=== PATIENT | male | born 1945 | race Caucasian/White ===

== ENCOUNTER 2021-05-31 13:35 | Inpatient (IN) | payer OTHER, MEDICARE ==
[~2021-05-31] VITALS: Ht 170.2 cm; Wt 95.3 kg
[2021-05-31] MEDS ORDERED: IV NORMAL SALINE 1000 ML BAG IV ONE ×2 (13:45→14:30)
--- NOTE | 2021-05-31 13:50 | NUR ---
Pt is refusing saline lock and blood draw, at bedside speaking with pt.
[2021-05-31] MEDS ORDERED: PREDNISONE (13:56)
[2021-05-31 14:03] LABS: MEAN CORPUSCULAR HEMOGLOBIN 31.4 uug (23.8-33.4); PLATELET COUNT (AUTO) 315 K/uL (152-348)
[2021-05-31 14:10] LABS: CARBON DIOXIDE 23 mmol/L (21-32); CHLORIDE 108 mmol/L (98-107); CREATININE 1.7 mg/dL (0.6-1.3); GLUCOSE 174 mg/dL (74-106); POTASSIUM 4.4 mmol/L (3.5-5.1); UREA NITROGEN, BLOOD 68 mg/dL (7-18)
[2021-05-31 14:16] LABS: ALANINE AMINOTRANSFERASE 42 U/L (16-63); ALKALINE PHOSPHATASE 52 U/L (50-136); ASPARTATE AMINOTRANSFERASE 29 U/L (15-37); BILIRUBIN,TOTAL 0.4 mg/dL (0.2-1.0); TOTAL PROTEIN, SERUM 7.8 g/dL (6.4-8.2)
[2021-05-31] MEDS ORDERED: CEFTRIAXONE 1 G in IV DEXTROSE 5% 50 ML IV ONE (14:30)
[2021-05-31] MEDS ORDERED: CEFTRIAXONE /D5W 50ML IVPB **ER PYXIS IV ONE (14:49)
[2021-05-31] MEDS ORDERED: DEXAMETHASONE SOD PHOSPHATE 10 MG INJ ONE (14:57)
[2021-05-31] MEDS ORDERED: DEXAMETHASONE SOD PHOSPHATE 4 MG INJ IV ONE (15:00)
--- NOTE | 2021-05-31 15:25 | NUR ---
Pt to be admitted to [facility] floor, [facility] paged. Pt resting with no s/s of acute distress noted at this time.
[2021-05-31] MEDS ORDERED: ACETAMINOPHEN 325 MG TABLET PO PRN (15:45)
[2021-05-31] MEDS ORDERED: ONDANSETRON 4 MG/2 ML VIAL IV PRN (15:45)
[2021-05-31] MEDS ORDERED: MAGNESIUM HYDROXIDE 30 ML LIQUID UDC PO PRN (15:45)
[2021-05-31] MEDS ORDERED: Z GUARD REMEDY PASTE 57 GM TUBE TOP PRN (15:45)
[2021-05-31] MEDS ORDERED: DEXTROSE 50% 50 ML DISP.SYRIN IV PRN (16:00)
--- NOTE | 2021-05-31 16:14 | NUR ---
Pt resting with NAD noted. Pending trans to tele floor when bed available (eta [id number]).
[2021-05-31 16:18] LABS: *BILIRUBIN,URIN NEGATIVE (NEGATIVE); *BLOOD, URINE NEGATIVE (NEGATIVE); *CLARITY,URINE CLEAR (CLEAR); *COLOR,URINE YELLOW (YELLOW); *KETONES,URINE NEGATIVE (NEGATIVE); *UROBILINOGEN,URINE 0.2 E.U./dl (NORMAL); LEUKOCYTE ESTERASE ,URINE NEGATIVE (NEGATIVE); NITRITE, URINE NEGATIVE (NEGATIVE); UGLUCOSE NEGATIVE (NEGATIVE)
[2021-05-31 16:28] LABS: *AMPHETAMINE, URINE NEGATIVE (NEGATIVE); *CANNABINOID, URINE NEGATIVE (NEGATIVE); *COCCAINE, URINE NEGATIVE (NEGATIVE); *OPIATE, URINE NEGATIVE (NEGATIVE); *PHENCYCLIDINE SCREEN,URINE NEGATIVE (NEGATIVE)
[2021-05-31] MEDS: BLOOD SUGAR DIAGNOSTIC 1 EACH STRIP VI SCH ×2 (16:30→21:36)
--- NOTE | 2021-05-31 18:05 | NUR ---
Pt trans to tele floor room 324, NAD noted.
[2021-05-31 18:47] VITALS: BP 135/46
--- NOTE | 2021-05-31 19:30 | NUR ---
Received pt in no acute distress. Iv intact. Pt on room air.Pt forgetful and needs reorientation. Safety and comfort provided. Will continue to monitor.
[2021-05-31 20:00] VITALS: BP 137/60
[2021-05-31] MEDS: HEPARIN SODIUM,PORCINE 5,000 UNITS/ML VIAL SQ SCH (21:00)
[2021-05-31] MEDS: IV NS 1000 ML 1,000 ML IV PRN (21:36)
[2021-05-31] MEDS: INSULIN REGULAR, HUMAN 300 UNIT/3 ML VIAL SQ PRN (21:37)
--- NOTE | 2021-05-31 21:37 | NUR ---
Pt refused his Heparin medication and Insulin medication. Pt in no acute distress. Safety and comfort provided. Will continue to monitor.
[2021-06-01 04:30] VITALS: BP 139/71
[2021-06-01] MEDS: PANTOPRAZOLE SODIUM 40 MG TABLET.DR PO SCH (06:04)
--- NOTE | 2021-06-01 06:10 | NUR ---
Pt slept intermittently. Pt in no acute distress. Prescribed medication given and pt tolerated it well. Pt forgetful and sometimes verbally abusive. Pt needs reorientation. Pt wants to be left alone and had incident that he is telling staff that he will hit us. Safety and comfort provided. Pt stable. Will continue to monitor and endorse to incoming nurse.
[2021-06-01] MEDS: BLOOD SUGAR DIAGNOSTIC 1 EACH STRIP VI SCH ×4 (06:46→20:37)
[2021-06-01] MEDS: HEPARIN SODIUM,PORCINE 5,000 UNITS/ML VIAL SQ SCH (08:26)
[2021-06-01] MEDS: DEXAMETHASONE SOD PHOSPHATE 4 MG INJ IV SCH (08:27)
[2021-06-01] MEDS: INSULIN REGULAR, HUMAN 300 UNIT/3 ML VIAL SQ PRN ×4 (08:28→20:38)
--- NOTE | 2021-06-01 09:00 | NUR ---
SEEN BY DR MANSFIELD FOR PULMO FOLLOW-UP SEE NOTES. PATIENT REMAINS COMPLIANCE NO C/O PAIN NO SOB
[2021-06-01] MEDS: IV NS 1000 ML 1,000 ML IV PRN (09:44)
[2021-06-01] MEDS: AZITHROMYCIN IV 500 MG in IV DEXTROSE 5% 250 ML IV SCH (11:58)
--- NOTE | 2021-06-01 12:00 | NUR ---
NO ACUTE CHANGE FROM AM ASSESSMENT
[2021-06-01 12:01] VITALS: BP 134/75
[2021-06-01 15:34] LABS: HEMATOCRIT 21.6 % (36.7-47.1); MEAN CORPUSCULAR HEMOGLOBIN 31.4 uug (23.8-33.4); MEAN CORPUSCULAR VOLUME 94.7 fL (73.0-96.2); PLATELET COUNT (AUTO) 304 K/uL (152-348)
[2021-06-01] MEDS: CEFTRIAXONE 1 G in IV DEXTROSE 5% 50 ML IV SCH (15:46)
[2021-06-01 16:00] VITALS: BP 118/64
[2021-06-01 16:03] LABS: ALANINE AMINOTRANSFERASE 44 U/L (16-63); ALKALINE PHOSPHATASE 52 U/L (50-136); ASPARTATE AMINOTRANSFERASE 25 U/L (15-37); BILIRUBIN,TOTAL 0.3 mg/dL (0.2-1.0); CARBON DIOXIDE 24 mmol/L (21-32); CHLORIDE 106 mmol/L (98-107); CREATININE 1.5 mg/dL (0.6-1.3); FERRITIN 246 ng/mL (26-388); GLUCOSE 200 mg/dL (74-106); LACTATE DEHYDROGENASE 254 U/L (85-227); PHOSPHOROUS 2.7 mg/dL (2.5-4.9); POTASSIUM 4.8 mmol/L (3.5-5.1); TOTAL PROTEIN, SERUM 6.6 g/dL (6.4-8.2); UREA NITROGEN, BLOOD 46 mg/dL (7-18)
--- NOTE | 2021-06-01 18:15 | NUR ---
PATIENT REMAINS STABLE NO SOB SATURATING 98% RA, AFEBRILE
--- NOTE | 2021-06-01 19:20 | NUR ---
Received pt resting in bed. AO x 1 to name, confused to place and time. On room air saturating at 95%. IV intact and running NS 75 mls/hr. No acute distress noted. Denies any pain or discomfort at this time. Call lights within reach, safety measures initiated. Urinal placed by bedside.
[2021-06-01 20:40] VITALS: BP 150/79
[2021-06-02] VITALS (10 sets, daily range): BP systolic 110–145; BP diastolic 61–76
[2021-06-02] MEDS: IV NS 1000 ML 1,000 ML IV PRN (03:37)
--- NOTE | 2021-06-02 05:28 | NUR ---
AO x 1, to name, slept throughout the night. On room air saturating at 100%. IV intact running NS at 75mls/hr. Droplet isloation in place and maintained. No signs of acute distress. Call lights within reach, safety measures maintained. Will endorse to am shift.
[2021-06-02] MEDS: PANTOPRAZOLE SODIUM 40 MG TABLET.DR PO SCH (06:18)
[2021-06-02] MEDS: BLOOD SUGAR DIAGNOSTIC 1 EACH STRIP VI SCH ×4 (06:27→20:45)
--- NOTE | 2021-06-02 06:28 | NUR ---
AO x 1, to name, slept throughout the night. On room air saturating at 100%. IV intact running NS at 75mls/hr. Droplet isloation in place and maintained. Compliant with medication and care. No signs of acute distress. Needs have been met. Call light within reach, safety measures maintained. Will endorse to am shift.
[2021-06-02 07:19] LABS: MEAN CORPUSCULAR HEMOGLOBIN 31.5 uug (23.8-33.4); MEAN CORPUSCULAR VOLUME 95.2 fL (73.0-96.2); PLATELET COUNT (AUTO) 298 K/uL (152-348)
[2021-06-02 07:26] LABS: ABG BASE EXCESS -4.9 mmol/L; ABG HCO3 18.3 mmol/L; ABG PCO2 26.3 mmHg (35.0-45.0); ABG PO2 92.7 mmHg (75.0-100.0); ABG SITE LEFT BRACHIAL; ABG TOTAL HEMOGLOBIN 6.9 G/dL (13.5-18.0); COHb 0.3 % (0.5-1.5); MetHb 0.5 % (0.0-1.5); O2Hb 95.8 % (94.0-97.0); VENT MODE ROOM AIR
--- NOTE | 2021-06-02 07:35 | NUR ---
relayed abg results to dr. delgado no new orders received at this time.
[2021-06-02 07:46] LABS: HEMATOCRIT 19.6 % (36.7-47.1)
--- NOTE | 2021-06-02 07:50 | NUR ---
received critical hgb/hct 6.5/ 19.8 and relayed to Sina Bejarano NP who's on the floor.
--- NOTE | 2021-06-02 07:56 | NUR ---
alert and oriented x1. no acute distress. denies pain or sob. in bed, iv intact and running. remains on contact isolation. safety measures in place. will cont to monitor.
[2021-06-02 08:03] LABS: CARBON DIOXIDE 24 mmol/L (21-32); CHLORIDE 109 mmol/L (98-107); CREATININE 1.4 mg/dL (0.6-1.3); FERRITIN 212 ng/mL (26-388); GLUCOSE 103 mg/dL (74-106); LACTATE DEHYDROGENASE 284 U/L (85-227); PHOSPHOROUS 2.9 mg/dL (2.5-4.9); POTASSIUM 4.2 mmol/L (3.5-5.1); UREA NITROGEN, BLOOD 40 mg/dL (7-18)
[2021-06-02] MEDS: DEXAMETHASONE SOD PHOSPHATE 4 MG INJ IV SCH (09:06)
[2021-06-02] MEDS: AZITHROMYCIN IV 500 MG in IV DEXTROSE 5% 250 ML IV SCH (09:06)
--- NOTE | 2021-06-02 11:22 | NUR ---
verified bt consent with patient. provided brochure "guide to blood transfusion". seen and examined by marlene chavez.
[2021-06-02] MEDS: INSULIN REGULAR, HUMAN 300 UNIT/3 ML VIAL SQ PRN ×3 (12:05→20:47)
--- NOTE | 2021-06-02 12:16 | NUR ---
called blood bank asked if what time blood will be ready. per satinder, probably in the afternoon when lab person who releases blood is here.
[2021-06-02] MEDS ORDERED: IV LACTATED RINGERS SOLUTION 1,000 ML IV PRN (16:30)
[2021-06-02 18:18] LABS: BAND % (MANUAL) 3 % (0-10); EOSINOPHILS % (MANUAL) 1 % (0-8); LYMPHOCYTES % (MANUAL) 13 % (20-40); METAMYELOCYTES % 8 % (0-1); MONOCYTES % (MANUAL) 2 % (2-10); MYELOCYTES % 4 % (0-0); NEUTROPHILS % (MANUAL) 69 % (42-75)
--- NOTE | 2021-06-02 18:34 | NUR ---
blood transfusion still ongoing. not in distress. no allergic/adverse reactions noted. pt eating dinner noted with good appetite. needs attended. safety measures maintained. remains on contact isolation for covid. cont to monitor.
--- NOTE | 2021-06-02 18:38 | NUR ---
1500 IV Rocephin not yet given d/t pt still having blood transfusion. will endorse accordingly.
--- NOTE | 2021-06-02 19:35 | NUR ---
Patient received in semi fowlers position. In no acute distress. Finished blood transfusion at this time. No adverse reaction noted, tolerates procedure well. AAO to person and situation, able to make simple needs known. Denies any pain, on RA, no SOB noted or reported. IV to right FA is intact and patent. He is urinating well, in urinal. Safety measures initiated. Call light within reach.
[2021-06-02] MEDS: CEFTRIAXONE 1 G in IV DEXTROSE 5% 50 ML IV SCH (20:36)
[2021-06-03 04:31] VITALS: BP 136/80
--- NOTE | 2021-06-03 05:58 | NUR ---
Slept well, easily woken. Denies any pain or discomfort. On RA, denies any SOB or respiratory distress. Urinating well. All needs assessed, call light within reach.
[2021-06-03] MEDS: PANTOPRAZOLE SODIUM 40 MG TABLET.DR PO SCH (06:19)
[2021-06-03] MEDS: LEVOTHYROXINE SODIUM 25 MCG TABLET PO SCH (06:19)
[2021-06-03] MEDS: BLOOD SUGAR DIAGNOSTIC 1 EACH STRIP VI SCH ×4 (06:31→21:00)
[2021-06-03] MEDS ORDERED: MAGNESIUM CITRATE 296 ML BOTTLE PO ONE (10:00)
[2021-06-03] MEDS: AZITHROMYCIN IV 500 MG in IV DEXTROSE 5% 250 ML IV SCH (10:01)
[2021-06-03 11:39] LABS: MEAN CORPUSCULAR HEMOGLOBIN 30.4 uug (23.8-33.4); MEAN CORPUSCULAR VOLUME 91.8 fL (73.0-96.2); PLATELET COUNT (AUTO) 301 K/uL (152-348)
[2021-06-03] MEDS: INSULIN REGULAR, HUMAN 300 UNIT/3 ML VIAL SQ PRN ×2 (11:51→21:04)
[2021-06-03 12:00] VITALS: BP 110/45
[2021-06-03 12:10] LABS: ALANINE AMINOTRANSFERASE 43 U/L (16-63); ALKALINE PHOSPHATASE 55 U/L (50-136); ASPARTATE AMINOTRANSFERASE 33 U/L (15-37); BILIRUBIN,DIRECT < 0.1 mg/dL (0.0-0.2); BILIRUBIN,TOTAL 0.3 mg/dL (0.2-1.0); CARBON DIOXIDE 22 mmol/L (21-32); CHLORIDE 106 mmol/L (98-107); CREATININE 1.6 mg/dL (0.6-1.3); GLUCOSE 143 mg/dL (74-106); PHOSPHOROUS 3.1 mg/dL (2.5-4.9); TOTAL PROTEIN, SERUM 6.3 g/dL (6.4-8.2); UREA NITROGEN, BLOOD 31 mg/dL (7-18)
[2021-06-03 12:26] LABS: IRON, SERUM 37 ug/dL (50-175)
[2021-06-03] MEDS: CEFTRIAXONE 1 G in IV DEXTROSE 5% 50 ML IV SCH (14:55)
[2021-06-03 16:00] VITALS: BP 115/57
--- NOTE | 2021-06-03 16:10 | NUR ---
Pt is a/o x 2, saturating 100% on room air. No complaint of pain, SOB, or signs of acute distress. Comfort measures provided, IV intact and patent. Pt received rocephin IV. pending stool sample for occult blood, unable to obtain sample, pt had a BM but flushed stool. Pt received 1 unit of RBC last night, current hgb from this am is 8.6. Call light within reach, will continue to monitor pt.
--- NOTE | 2021-06-03 19:30 | NUR ---
Received patient lying in bed. AAOx2. Patient denies SOB, chest pain or dizziness. On room air, saturating at 98%. IV on R AC intact and patent. Instructed patient to call nurse once he feels the urge for a bowel movement, to collect stool sample. Safety precautions and comfort measures initiated. Call light button and frequently used items within reach. Will continue to monitor.
[2021-06-03 20:46] VITALS: BP 117/61
[2021-06-04 04:52] VITALS: BP 166/81
[2021-06-04 06:04] VITALS: BP 152/76
[2021-06-04] MEDS: LEVOTHYROXINE SODIUM 25 MCG TABLET PO SCH (06:19)
[2021-06-04] MEDS: PANTOPRAZOLE SODIUM 40 MG TABLET.DR PO SCH (06:19)
[2021-06-04] MEDS: BLOOD SUGAR DIAGNOSTIC 1 EACH STRIP VI SCH ×4 (06:46→21:18)
--- NOTE | 2021-06-04 06:52 | NUR ---
Patient slept through the night. Patient is oriented to self, but not to place or time. Reoriented patient accordingly. No acute distress noted at this time. AC Accuchek done, showing results of 121. IV on R AC was dislodged, will attempt to reinsert. Patient didn't have a bowel movement last night, unable to collect stool sample. All needs were attended to and met. Safety and comfort measures were maintained. Will endorse to day shift nurse.
[2021-06-04 06:53] LABS: HEMATOCRIT 25.4 % (36.7-47.1); MEAN CORPUSCULAR HEMOGLOBIN 30.4 uug (23.8-33.4); MEAN CORPUSCULAR VOLUME 92.3 fL (73.0-96.2); PLATELET COUNT (AUTO) 276 K/uL (152-348)
[2021-06-04 07:14] LABS: CARBON DIOXIDE 25 mmol/L (21-32); CHLORIDE 107 mmol/L (98-107); CREATININE 1.4 mg/dL (0.6-1.3); GLUCOSE 96 mg/dL (74-106); POTASSIUM 4.2 mmol/L (3.5-5.1); UREA NITROGEN, BLOOD 26 mg/dL (7-18)
--- NOTE | 2021-06-04 08:10 | NUR ---
Pt is received awake, A/O x3. Pt saturates 97% on room air, no sob. Pt is calm on approach. Waiting for Midline placement. Comfort measures provided, no distress noted.
[2021-06-04 12:00] VITALS: BP 131/62
[2021-06-04] MEDS: AZITHROMYCIN IV 500 MG in IV DEXTROSE 5% 250 ML IV SCH (12:50)
[2021-06-04] MEDS: CEFTRIAXONE 1 G in IV DEXTROSE 5% 50 ML IV SCH (15:15)
[2021-06-04 16:00] VITALS: BP 113/68
[2021-06-04 17:09] LABS: *OCCULT BLOOD STOOL POSITIVE (NEGATIVE)
[2021-06-04 20:00] VITALS: BP 139/72
[2021-06-04] MEDS: INSULIN REGULAR, HUMAN 300 UNIT/3 ML VIAL SQ PRN (21:26)
[2021-06-05 04:00] VITALS: BP 116/81
[2021-06-05] MEDS: LEVOTHYROXINE SODIUM 25 MCG TABLET PO SCH (06:04)
[2021-06-05] MEDS: PANTOPRAZOLE SODIUM 40 MG TABLET.DR PO SCH (06:04)
[2021-06-05] MEDS: BLOOD SUGAR DIAGNOSTIC 1 EACH STRIP VI SCH ×4 (06:32→21:11)
[2021-06-05 06:52] LABS: MEAN CORPUSCULAR HEMOGLOBIN 30.6 uug (23.8-33.4); MEAN CORPUSCULAR VOLUME 93.3 fL (73.0-96.2); PLATELET COUNT (AUTO) 275 K/uL (152-348)
[2021-06-05 07:20] LABS: CARBON DIOXIDE 25 mmol/L (21-32); CHLORIDE 104 mmol/L (98-107); CREATININE 1.4 mg/dL (0.6-1.3); GLUCOSE 108 mg/dL (74-106); MAGNESIUM 2.4 mg/dL (1.8-2.4); PHOSPHOROUS 3.4 mg/dL (2.5-4.9); POTASSIUM 4.3 mmol/L (3.5-5.1); UREA NITROGEN, BLOOD 23 mg/dL (7-18)
--- NOTE | 2021-06-05 07:45 | NUR ---
Received patient report from assignment clerk nurse. Arrived to patients room resting comfortably with no apparent signs of distress or discomfort. Patient is awake, alert, and oriented x 4. Midline right upper arm site intact and patent. Patient currently on room air. Bed left in the lowest position with call light within reach. Will continue to monitor patient throughout shift.
[2021-06-05] MEDS: AZITHROMYCIN IV 500 MG in IV DEXTROSE 5% 250 ML IV SCH (10:14)
[2021-06-05 11:55] VITALS: BP 131/70
[2021-06-05] MEDS: CEFTRIAXONE 1 G in IV DEXTROSE 5% 50 ML IV SCH (15:10)
--- NOTE | 2021-06-05 15:23 | NUR ---
Patient refused CT scan. Patient explained the need for procedure. Patient verbalized understanding and still refused.
[2021-06-05 16:02] VITALS: BP 124/79
--- NOTE | 2021-06-05 19:08 | NUR ---
Patient showed no signs of distress or discomfort during shift. Patient received medication regimen throughout shift. Patient is currently resting comfortably in room with bed in lowest position, and call light within reach. Midline Right Upper Arm 20 G is intact and patent. Will endorse to night shift supervisor nurse.
[2021-06-05 20:00] VITALS: BP 117/64
[2021-06-05] MEDS: INSULIN REGULAR, HUMAN 300 UNIT/3 ML VIAL SQ PRN (21:11)
[2021-06-06 04:00] VITALS: BP 119/74
--- NOTE | 2021-06-06 06:00 | NUR ---
PATIENT AWAKE IN BED, WATCHING TV. SLEPT WELL. DENIES PAIN OR DISCOMFORT. VS WNL. CALL LIGHT IN REACH. ALL NEEDS ATTENDED, WILL CONTINUE TO MONITOR AND ASSESS.
[2021-06-06] MEDS: LEVOTHYROXINE SODIUM 25 MCG TABLET PO SCH (06:03)
[2021-06-06] MEDS: PANTOPRAZOLE SODIUM 40 MG TABLET.DR PO SCH (06:03)
[2021-06-06] MEDS: BLOOD SUGAR DIAGNOSTIC 1 EACH STRIP VI SCH ×4 (06:25→21:19)
[2021-06-06 08:34] LABS: CARBON DIOXIDE 26 mmol/L (21-32); CHLORIDE 104 mmol/L (98-107); CREATININE 1.7 mg/dL (0.6-1.3); GLUCOSE 109 mg/dL (74-106); MAGNESIUM 2.4 mg/dL (1.8-2.4); POTASSIUM 4.6 mmol/L (3.5-5.1); UREA NITROGEN, BLOOD 22 mg/dL (7-18)
[2021-06-06 08:39] LABS: MEAN CORPUSCULAR VOLUME 93.5 fL (73.0-96.2); PLATELET COUNT (AUTO) 287 K/uL (152-348)
[2021-06-06] MEDS: INSULIN REGULAR, HUMAN 300 UNIT/3 ML VIAL SQ PRN (11:35)
[2021-06-06 11:59] VITALS: BP 138/70
[2021-06-06] MEDS: CEFTRIAXONE 1 G in IV DEXTROSE 5% 50 ML IV SCH (14:48)
[2021-06-06 16:02] VITALS: BP 139/71
[2021-06-06] MEDS ORDERED: AMOX-430 PO (16:28)
[2021-06-06] MEDS ORDERED: PANT20TA2 PO (16:28)
[2021-06-06] MEDS ORDERED: ATOR40TA PO (16:28)
[2021-06-06] MEDS ORDERED: METF-494 PO (16:28)
--- NOTE | 2021-06-06 16:31 | NUR ---
DC ORDERS RECEIVED. [facility] BEING CONTACTED RE: DC AND ENTERTAINMENT LAWYER BEING NOTIFIED TO ASSIST WITH DC.
--- NOTE | 2021-06-06 16:46 | NUR ---
S/W JUANCARLOS MALAVE) FROM THE [facility]. SHE EXPLAINED THAT THEIR FACILITY IS A TEMPORARY QUARANTINE LOCATION AND PT'S QUARANTINE PERIOD HAS LAPSED SINCE HE WAS (+) ON 05/24/21. NURSING SENIOR SOFTWARE ENGINEERING MANAGER MADE AWARE THAT ADJUSTMENT CLERK NEEDS TO BE INVOLVED. PRATIK WATT HOSPITALIST UPDATED WELL.
--- NOTE | 2021-06-06 19:45 | NUR ---
Received patient lying in bed, watching TV. AAOx1-2, with episodes of confusion. Reoriented patient to time and place. Patient denies SOB, chest pain or dizziness. On room air, saturating at 92%. IV on R UA intact and patent. Safety precautions and comfort measures initiated. Call light button and frequently used items within reach. Will continue to monitor.
[2021-06-06 20:18] VITALS: BP 133/74
[2021-06-07 04:21] VITALS: BP 101/55
[2021-06-07] MEDS: PANTOPRAZOLE SODIUM 40 MG TABLET.DR PO SCH (06:20)
[2021-06-07] MEDS: LEVOTHYROXINE SODIUM 25 MCG TABLET PO SCH (06:20)
[2021-06-07] MEDS: BLOOD SUGAR DIAGNOSTIC 1 EACH STRIP VI SCH ×2 (06:32→11:42)
--- NOTE | 2021-06-07 06:46 | NUR ---
Pt. slept through the night with no complaints of SOB, chest pain or dizziness. Pt is compliant with medication. AC Accuchek done, results of 124. Pt is ready for D/C, however, unable to find a placement at the moment. Will endorse to day shift nurse.
[2021-06-07 11:35] VITALS: BP 129/66
[2021-06-07] MEDS: INSULIN REGULAR, HUMAN 300 UNIT/3 ML VIAL SQ PRN (11:43)
--- NOTE | 2021-06-07 12:00 | NUR ---
covid rapid test came back negative. no distress identified. Will continue to monitor.
[2021-06-07 14:15] LABS: CARBON DIOXIDE 27 mmol/L (21-32); CHLORIDE 103 mmol/L (98-107); CREATININE 1.5 mg/dL (0.6-1.3); GLUCOSE 112 mg/dL (74-106); POTASSIUM 4.3 mmol/L (3.5-5.1); UREA NITROGEN, BLOOD 19 mg/dL (7-18)
[2021-06-07] MEDS: CEFTRIAXONE 1 G in IV DEXTROSE 5% 50 ML IV SCH (15:00)
[2021-06-07 15:33] VITALS: BP 120/70
[2021-06-07] MEDS ORDERED: LEVO25TA9 PO (15:41)
--- NOTE | 2021-06-07 15:45 | NUR ---
DISCHARGED PATIENT VIA TAXI WITH STABLE CONDITION. NO PAIN OR DISTRESS IDENTIFIED. DISCHARGE INSTRUCTIONS GIVEN AND SIGNED, UNDERSTANDING NOTED. BELONGING LIST SIGNED. SKIN INTACT. COVID TEST NEGATIVE. LEFT WITH MASK ON, EDUCATION ON COVID GIVEN. ALL DUE MEDS WERE GIVEN. JUAN FRANCISCO MIDLINE REMOVED, TOLERATED WELL, NO BLEEDING NOTED. ALL NEEDS ATTENDED. KEPT SAFE AT ALL TIMES.
== END 2021-06-07 15:45 | disposition home or self-care (01) | DRG 469 ==
LOC: ER 14:02 → TELE3 17:52 → MEDSURG3 18:10
PROVIDERS: ADMIT Hospitalist; ATTEND Nurse Practitioner Family
DX: N17.0 Acute kidney failure with tubular necrosis (principal); J12.82 Pneumonia due to coronavirus disease 2019; G93.41 Metabolic encephalopathy; U07.1 COVID-19; K92.2 Gastrointestinal hemorrhage, unspecified; E87.2 Acidosis; E11.9 Type 2 diabetes mellitus without complications; D64.9 Anemia, unspecified; E66.9 Obesity, unspecified; I10 Essential (primary) hypertension; R26.81 Unsteadiness on feet; Z59.01 Sheltered homelessness; R29.6 Repeated falls; Z68.32 Body mass index [BMI] 32.0-32.9, adult; J18.9 Pneumonia, unspecified organism
CPT/HCPCS: 36415; 36600; 70030-TC; 70450; 71045; 76770; 82747; 83550; 83605; 83615; 83735; 84100; 84443; 85014; 85025; 85730; 86140; 86850; 86900; 86901; 86920; 87040; 93005; A4663; G0378; J0456; J0696; J1100; J1644; J1815; J7030; J7050; J7060; J7120; P9016; U0003